=== PATIENT | female | born 1990 | race Caucasian/White ===

== ENCOUNTER 2024-07-19 08:10 | Inpatient (IN) | payer OTHER ==
[2024-07-19] MEDS ORDERED: ELECTROLYTE-148 SOLN 500 ML IV ONE (09:31)
[2024-07-19 09:43] LABS: INR 0.98 (0.83-1.09); PROTHROMBIN TIME (PATIENT) 11.3 SEC (9.7-13.0)
[2024-07-19 09:46] LABS: ACTIVATED PTT 27.5 SECONDS (25.2-36.5)
[2024-07-19] MEDS: LACTATED RINGERS SOLUTION 1,000 ML/1,000 ML INFUS.BAG IV SCH (10:00)
[2024-07-19] MEDS ORDERED: FENTANYL CITRATE/PF 50 MCG/ML VIAL ONE (10:14)
[2024-07-19] MEDS ORDERED: morphine SULFATE/PF 1 MG/2 ML (2cc Syringe - QUVA) ONE (10:14)
[2024-07-19 10:20] VITALS: BMI 30.8
[2024-07-19] MEDS ORDERED: ONDANSETRON 4 MG/2 ML VIAL ONE (11:27)
[2024-07-19] MEDS ORDERED: KETOROLAC TROMETHAMINE 30 MG/1 ML VIAL ONE (11:27)
[2024-07-19] MEDS ORDERED: ceFAZolin SODIUM 1 GM VIAL ONE (11:27)
[2024-07-19] MEDS ORDERED: OXYTOCIN 10 UNITS/ML VIAL ONE (11:27)
[2024-07-19] MEDS ORDERED: ONDANSETRON 4 MG/2 ML VIAL IVPUSH PRN (11:53)
[2024-07-19] MEDS ORDERED: morphine SULFATE/PF 1 MG/2 ML (2cc Syringe - QUVA) IT ONE (11:53)
[2024-07-19 12:34] LABS: CORD BASE EXCESS -3.7 mmol/L (0-2); CORD HCO3 22.8 mmHg (20-29); CORD PCO2 46.5 mmHg (30-78); CORD pH 7.309 (7.14-7.44)
[2024-07-19] MEDS ORDERED: OXYTOCIN 20 UNITS in 0.9% NS 20 UNIT/1,000 ML INFUS.BAG IV ONE (13:33)
[2024-07-19] MEDS: ACETAMINOPHEN 1000 MG/100 ML BAG IVPB SCH (18:42)
[2024-07-19] MEDS: OXYTOCIN 20 UNITS in 0.9% NS 20 UNIT/1,000 ML INFUS.BAG IV SCH (20:09)
[2024-07-19] MEDS ORDERED: oxyCODONE HCL 5 MG TABLET PO PRN (22:09)
[2024-07-20] MEDS: IBUPROFEN 800 MG/8 ML IJ IVPB PRN (04:43)
[2024-07-20] MEDS: ACETAMINOPHEN 325 MG TABLET (FP) PO PRN (06:31)
[2024-07-20 08:19] LABS: BASO % 0.7 % (0-2.0); EOS % 3.2 % (0-4.5); LYMPH % 11.1 % (8-40); MCH 23.6 pg (25.7-33.7); MEAN CELL VOLUME 76.1 fl (80-96); MEAN PLT VOLUME 8.6 fl (7.5-11.1); MONO % 4.6 % (3.8-10.2); NEUT % 80.4 % (42.8-82.8); PLATELET COUNT 137 10^3/uL (134-434); RBC 3.81 M/mm3 (3.60-5.2); RDW 25.1 % (11.6-15.6); WHITE BLOOD COUNT 10.1 K/mm3 (4.0-10.0)
[2024-07-20 09:57] LABS: ANISOCYTOSIS 1+; MACROCYTOSIS 0
[2024-07-20] MEDS ORDERED: BISACODYL 10 MG SUPP.RECT RC PRN (10:09)
[2024-07-20] MEDS: IBUPROFEN 600 MG TABLET (FP) PO PRN (13:54)
[2024-07-20] MEDS: SIMETHICONE 80 MG TAB.CHEW (FP) PO PRN (13:54)
[2024-07-22 06:58] LABS: BASO % 0.6 % (0-2.0); EOS % 7.9 % (0-4.5); HEMOGLOBIN 8.7 GM/dL (10.7-15.3); LYMPH % 24.6 % (8-40); MCH 23.8 pg (25.7-33.7); MCHC 31.1 g/dl (32.0-36.0); MEAN CELL VOLUME 76.4 fl (80-96); MEAN PLT VOLUME 9.1 fl (7.5-11.1); MONO % 5.9 % (3.8-10.2); PLATELET COUNT 185 10^3/uL (134-434); RBC 3.66 M/mm3 (3.60-5.2); RDW 25.7 % (11.6-15.6); WHITE BLOOD COUNT 8.1 K/mm3 (4.0-10.0)
[2024-07-22 11:51] VITALS: BP 100/64; PULSE 79; RESP 17; TEMP 98.2
== END 2024-07-22 13:30 | disposition home or self-care (01) | DRG 540 ==
LOC: JLDR 08:10 → J3W 13:45
PROVIDERS: ADMIT Student in an Organized Health Care Education/Training Program; ATTEND Student in an Organized Health Care Education/Training Program
PROC: 10D00Z1 Extraction of Products of Conception, Low, Open Approach (ICD-10-PCS; principal; 2024-07-19)
DX: O34.211 Maternal care for low transverse scar from previous cesarean delivery (principal); N85.8 Other specified noninflammatory disorders of uterus; Z3A.39 39 weeks gestation of pregnancy; Z37.0 Single live birth
CPT/HCPCS: 36415; 36600; 59409; 82803; 85025; 85610; 85730; 86850; 86900; 86901; 88307-TC; 94010; J0131